=== PATIENT | male | born 2000 | race Caucasian/White ===

== ENCOUNTER 2023-04-01 20:32 | Emergency (ER) | payer SELFPAY ==
[2023-04-01] MEDS ORDERED: Ibuprofen 200 MG TAB ONE (20:59)
[2023-04-01] MEDS ORDERED: Acetaminophen 500 MG TAB ONE (20:59)
[2023-04-01 21:26] LABS: SARS-CoV-2 NAA Rapid Test Not Detected (NotDetected)
== END 2023-04-01 21:55 | disposition home or self-care (01) ==
LOC: CSHERS 20:32
DX: J10.1 Influenza due to other identified influenza virus with other respiratory manifestations (principal)
CPT/HCPCS: 99283

== ENCOUNTER 2024-01-08 18:30 | Emergency (ER) | payer SELFPAY ==
[2024-01-08] MEDS ORDERED: Ketorolac Tromethamine 30 MG (1 mL) VIAL ONE (19:18)
== END 2024-01-08 20:10 | disposition home or self-care (01) ==
LOC: CSHERS 18:30
DX: B34.9 Viral infection, unspecified (principal); Z55.0 Illiteracy and low-level literacy
CPT/HCPCS: 71045; 87428; 96372; J1885